=== PATIENT | female | born 1960 | race Caucasian/White ===

== ENCOUNTER → 2016-06-15 | Outpatient (CLI) | payer BC ==
--- NOTE | 2016-06-18 08:48 | MM ---
Reason for exam: screening (asymptomatic). Last mammogram was performed 2 years ago. History: Took hormonal contraceptives for 4 years. Physical Findings: A clinical breast exam by your physician is recommended on an annual basis and results should be correlated with mammographic findings. MG Screening Mammo w CAD Bilateral CC and MLO view(s) were taken. Prior study comparison: May 31, 2014, bilateral MG screening mammo w CAD. May 08, 2013, bilateral digital screening mammo w/CAD. September 19, 2011, bilateral digital screening mammo w/CAD. The breast tissue is heterogeneously dense. This may lower the sensitivity of mammography. There is no discrete abnormality. ASSESSMENT: Negative, BI-RAD 1 RECOMMENDATION: Routine screening mammogram of both breasts in 1 year.
== END | disposition home or self-care (01) ==
LOC: RADMAMWWP 07:58
PROVIDERS: ATTEND Obstetrics & Gynecology
DX: Z12.31 Encounter for screening mammogram for malignant neoplasm of breast (principal)

== ENCOUNTER → 2017-08-19 | Outpatient (CLI) | payer BC ==
--- NOTE | 2017-08-19 16:26 | BD ---
EXAMINATION TYPE: Axial Bone Density DATE OF EXAM: 08/19/2017 COMPARISON: NONE CLINICAL HISTORY: 57-year-old female screening for osteoporosis Height: 5 FT 7 IN Weight: 216 FRAX RISK QUESTIONS: Secondary Osteoporosis: RISK FACTORS HISTORY OF: Active: YES Postmenopausal woman: AGE 53 Lost more than 2 inches in height since high school: YES MEDICATIONS: Thyroid Medications: YES Which medication: SYNTHROID How Lon-2 YEARS Osteoporosis Medications: Which medication: METOPROLOL,SYNTHROID Additional History: EXAM MEASUREMENTS: Bone mineral densitometry was performed using the [employer] System. Bone mineral density as measured about the Lumbar spine is: ----- L1-L4(G/cm2): 0.885 T Score Values are as follows: ----- L2: -2.9 ----- L3: -2.3 ----- L4: -2.8 ----- L1-L4: -2.5 BASELINE Bone mineral density about the R hip (g/cm2): 0.800 Bone mineral density about the L hip (g/cm2): 0.822 T Score values are as follows: -----R Neck: -1.7 -----L Neck: -1.6 -----R Total: -1.2 -----L Total: -0.9 BASELINE IMPRESSION: Osteoporosis (T Score less than -2.5). There is increased fracture risk and therapy is usually indicated based on age. Re-Screen 1-2 years. NOTE: T-SCORE=SD OF THE YOUNG ADULT MEAN.
--- NOTE | 2017-08-20 08:43 | MM ---
Reason for exam: screening (asymptomatic). Last mammogram was performed 1 year and 2 months ago. History: Patient is postmenopausal. Took hormonal contraceptives for 4 years. Physical Findings: A clinical breast exam by your physician is recommended on an annual basis and results should be correlated with mammographic findings. MG Screening Mammo w CAD Bilateral CC and MLO view(s) were taken. Prior study comparison: June 15, 2016, bilateral MG screening mammo w CAD. May 31, 2014, bilateral MG screening mammo w CAD. The breast tissue is heterogeneously dense. This may lower the sensitivity of mammography. Finding: There is a 7 mm equal density (isodense), oval mass in the outer quadrant of the left breast not seen on MLO. ASSESSMENT: Incomplete: need additional imaging evaluation, BI-RAD 0 RECOMMENDATION: Special view mammogram of the left breast. If lesion persists on supplemental views, image directed ultrasound is recommended. [facility] will attempt to contact patient to return for supplemental views and ultrasound if indicated.
== END | disposition home or self-care (01) ==
LOC: RADMAMWWP 08:08
PROVIDERS: ATTEND Obstetrics & Gynecology
DX: Z12.31 Encounter for screening mammogram for malignant neoplasm of breast (principal); Z13.820 Encounter for screening for osteoporosis
CPT/HCPCS: 77067; 77080

== ENCOUNTER → 2017-09-02 | Outpatient (CLI) | payer BC ==
--- NOTE | 2017-09-02 10:42 | MM ---
Reason for exam: additional evaluation requested from abnormal screening. Last mammogram was performed less than 1 month ago. History: Patient is postmenopausal. Took hormonal contraceptives for 4 years. Physical Findings: Nurse did not find any significant physical abnormalities on exam. MG Work Up Mamm w CAD LT XCCL, MLO, and ML view(s) were taken of the left breast. Prior study comparison: August 19, 2017, bilateral MG screening mammo w CAD. June 15, 2016, bilateral MG screening mammo w CAD. The breast tissue is heterogeneously dense. This may lower the sensitivity of mammography. Axillary tail nodule not previously included on the CC views but was present on multiple prior MLO views compatible with a lymph node. These results were verbally communicated with the patient and result sheet given to the patient on 09/02/17. ASSESSMENT: Benign, BI-RAD 2 RECOMMENDATION: Return to routine screening mammogram schedule for both breasts.
== END ==
LOC: RADMAMWWP 07:45
PROVIDERS: ATTEND Obstetrics & Gynecology
DX: R92.8 Other abnormal and inconclusive findings on diagnostic imaging of breast (principal)
CPT/HCPCS: 77065

== ENCOUNTER → 2019-12-10 | Outpatient (CLI) | payer BC ==
--- NOTE | 2019-12-14 14:02 | MM ---
Reason for exam: screening (asymptomatic). Last mammogram was performed 2 years and 3 months ago. History: Patient is postmenopausal. Took hormonal contraceptives for 4 years. Physical Findings: A clinical breast exam by your physician is recommended on an annual basis and results should be correlated with mammographic findings. MG 3D Screening Mammo W/Cad Bilateral CC and MLO view(s) were taken. Prior study comparison: September 02, 2017, left breast MG work up mamm w CAD LT. August 19, 2017, bilateral MG screening mammo w CAD. The breast tissue is heterogeneously dense. This may lower the sensitivity of mammography. No significant changes when compared with prior studies. ASSESSMENT: Benign, BI-RAD 2 RECOMMENDATION: Routine screening mammogram of both breasts in 1 year.
== END | disposition home or self-care (01) ==
LOC: RADMAMWWP 07:30
PROVIDERS: ATTEND Obstetrics & Gynecology
DX: Z12.31 Encounter for screening mammogram for malignant neoplasm of breast (principal)
CPT/HCPCS: 77063; 77067

== ENCOUNTER 2020-08-29 17:57 | Emergency (ER) | payer BC ==
[2020-08-29 18:02] VITALS: BP 148/84; PULSE 101; RESP 20; TEMP 98.2
[2020-08-29] MEDS ORDERED: ACETAMINOPHEN TAB 500 MG TAB PO STA (18:13)
--- NOTE | 2020-08-29 19:07 | XR ---
EXAMINATION TYPE: XR foot complete LT DATE OF EXAM: 08/29/2020 COMPARISON: NONE HISTORY: Pain and swelling TECHNIQUE: 3 views FINDINGS: Metatarsals appear intact. The midfoot appears intact. I see no fracture nor dislocation. IMPRESSION: No fracture seen.
--- NOTE | 2020-08-29 19:08 | XR ---
EXAMINATION TYPE: XR ankle complete LT DATE OF EXAM: 08/29/2020 COMPARISON: NONE HISTORY: Pain TECHNIQUE: 3 views FINDINGS: Ankle mortise is anatomic. I see no fracture nor dislocation. Joint spaces are fairly brent l. There are small Achilles calcaneal spur. IMPRESSION: Minimal calcaneal spurring. No fracture.
--- NOTE | 2020-08-29 19:31 | ED ---
Lower Extremity Injury HPI - General Chief Complaint: Extremity Injury, Lower Stated Complaint: Fall/ankle injury Time Seen by Provider: 08/29/20 18:12 Source: patient Mode of arrival: wheelchair Limitations: no limitations - History of Present Illness Initial Comments: Patient is a 60-year-old female with past medical history remarkable for thyroid disorder, hypertension, anxiety presents to the emergency department complaining of left ankle and foot pain. Patient states that she rolled her ankle while wearing shoe earlier today. She states she slowly fell to the ground and did not injure any other part of her body. She denies hitting her head or experiencing loss of consciousness. She is only complaining of left lateral ankle pain as well as left foot pain. She states she has been able to ambulate on it, however this progressively worsened throughout the day today. The injury occurred at approximately noon today. She is instructed take Motrin with mild improvement in her pain. She presents emergency department for concern for possible fracture or injury. She has no other acute complaints or injuries at this time. - Related Data Home Medications Medication Instructions Recorded Confirmed Levothyroxine Sodium [Synthroid] 25 mcg PO DAILY 09/06/15 09/06/15 Metoprolol Tartrate [Lopressor] 25 mg PO DAILY 09/06/15 09/06/15 Multivitamins, Thera [Multivitamin] 1 tab PO DAILY 09/06/15 09/06/15 Allergies Allergy/AdvReac Type Severity Reaction Status Date / Time No Known Allergies Allergy Verified 08/29/20 18:02 Review of Systems ROS Statement: Those systems with pertinent positive or pertinent negative responses have been documented in the HPI. Review of Systems: CONST: Denies fever EYES: Denies blurry vision ENT: Denies nasal congestion C/V: Denies Chest pain RESP: Denies shortness of breath GI: Denies abdominal pain : Denies dysuria SKIN: Denies rash. MSK: Endorses left ankle pain NEURO: Denies headache ROS Other: All systems not noted in ROS Statement are negative. Past Medical History Past Medical History: Hypertension, Thyroid Disorder Additional Past Medical History / Comment(s): Anxiety History of Any Multi-Drug Resistant Organisms: None Reported Past Surgical History: Back Surgery Additional Past Surgical History / Comment(s): Laminectomy Past Psychological History: Anxiety Smoking Status: Never smoker Past Alcohol Use History: Occasional Past Drug Use History: None Reported General Exam - General Exam Comments Initial Comments: General: Mild distress secondary to ankle pain. HEAD: Normal with no signs of head trauma. EYES: EOMI ENT: Hearing grossly intact RESPIRATORY: Clear breath sounds bilaterally. C/V: Regular rate and rhythm, S1 and S2 auscultated. Peripheral pulses are 2+ intact throughout. ABD: Abd is soft, nontender, nondistended EXT: Patient has reduced range of motion of the left ankle secondary to pain over the lateral malleolus. Patient also has left lateral proximal foot tenderness over the metatarsals. SKIN: No rashes or lesions observed on exposed skin. NEURO: Alert and oriented 4. Patient is neurovascularly intact throughout. Limitations: no limitations Course Vital Signs 08/29/20 17:59 Temperature 98.2 F Pulse Rate 101 H Respiratory 20 Rate Blood Pressure 148/84 O2 Sat by Pulse 100 Oximetry Medical Decision Making - Medical Decision Making Based on the patient's presentation and physical exam, I'm concerned for possible acute bony treatment continue the patient's left foot or ankle, however cannot rule out a sprain or muscular injury at this time. Therefore we will obtain plain film x-rays of the patient's left ankle and left foot. I did offer the patient analgesia and she accepted Tylenol by mouth. I do not believe that she'll present to further laboratory studies or imaging at this time. Patient's imaging was negative for acute fracture or subluxation. I did discuss this with the patient informed her that she is likely experiencing an ankle sprain. I recommended ice, elevation, and relaxation. Advised that she weight- bear as tolerated. We will wrap the ankle and the Damian bandage applied with cru tches for home. She was in agreement with this plan. I offered her analgesia prescriptions which she declined. I instructed the patient to follow up with their PCP in the next 3 days. I explained that the patient should return to the emergency department if they experience any worsening symptoms. Strict return precautions were discussed with the patient. The patient expressed understanding of these instructions. I answered all questions that the patient had. The patient was discharged home in stable condition with their prescriptions and follow up information. Disposition Clinical Impression: Ankle sprain Disposition: HOME SELF-CARE Condition: Good Instructions (If sedation given, give patient instructions): Ankle Sprain (ED) Is patient prescribed a controlled substance at d/c from ED?: No Referrals: Jonathan Card MD [Primary Care Provider] - 1-2 days
== END 2020-08-29 20:20 | disposition home or self-care (01) ==
LOC: EC 17:57
DX: S93.402A Sprain of unspecified ligament of left ankle, initial encounter (principal); I10 Essential (primary) hypertension; E07.9 Disorder of thyroid, unspecified; Z79.890 Hormone replacement therapy; Z79.899 Other long term (current) drug therapy; W18.30XA Fall on same level, unspecified, initial encounter; Y92.89 Other specified places as the place of occurrence of the external cause; Y93.89 Activity, other specified
CPT/HCPCS: 99283

== ENCOUNTER 2022-08-20 08:47 | Observation (INO) | payer BC ==
[2022-08-20] MEDS ORDERED: ONDANSETRON 4 MG/2 ML VIAL IVP STA (09:12)
[2022-08-20] MEDS ORDERED: KETOROLAC 15 MG/ML 1 ML VIAL IVP STA (09:12)
[2022-08-20 09:32] LABS: Basophils % (A) 1 %; Eosinophils # (A) 0.1 k/uL (0-0.7); Eosinophils % (A) 2 %; HCT 45.7 % (34.0-46.0); HGB 14.8 gm/dL (11.4-16.0); Lymphocytes # (A) 2.2 k/uL (1.0-4.8); Lymphocytes % (A) 38 %; MCH 29.7 pg (25.0-35.0); MCHC 32.3 g/dL (31.0-37.0); MCV 92.2 fL (80.0-100.0); Mean Platelet Volume 8.8; Monocytes # (A) 0.3 k/uL (0-1.0); Monocytes % (A) 6 %; Neutrophils # (A) 2.9 k/uL (1.3-7.7); Neutrophils % (A) 52 %; Platelet Count 268 k/uL (150-450); RBC 4.96 m/uL (3.80-5.40); RDW 12.7 % (11.5-15.5); WBC 5.6 k/uL (3.8-10.6)
[2022-08-20 09:45] LABS: ALT 28 U/L (4-34); AST 35 U/L (14-36); African American GFR (CKD) >90 (>60 ml/min/1.73 sqM); Albumin 4.5 g/dL (3.5-5.0); Alkaline Phosphatase 76 U/L (38-126); Amylase 65 U/L (30-110); Anion Gap 10 mmol/L; Blood Urea Nitrogen 11 mg/dL (7-17); Calcium 9.8 mg/dL (8.4-10.2); Carbon Dioxide 24 mmol/L (22-30); Chloride 104 mmol/L (98-107); Glucose 124 mg/dL (74-99); INR 0.9 (<1.2); Lipase 113 U/L (23-300); Magnesium 1.9 mg/dL (1.6-2.3); Non-African American GFR(CKD) >90 (>60 ml/min/1.73 sqM); Partial Thromboplastin Time 23.5 sec (22.0-30.0); Prothrombin Time 9.8 sec (9.0-12.0); Sodium 138 mmol/L (137-145); Total Bilirubin 0.8 mg/dL (0.2-1.3); Total Protein 8.1 g/dL (6.3-8.2)
[2022-08-20 09:50] LABS: Potassium 4.4 mmol/L (3.5-5.1)
--- NOTE | 2022-08-20 10:11 | XR ---
EXAMINATION TYPE: XR thoracic spine complete DATE OF EXAM: 08/20/2022 COMPARISON: None HISTORY: Upper back pain TECHNIQUE: 3 view thoracic spine FINDINGS: There is a scoliosis with convexity to the right centered at approximately T9. There are 12 thoracic type vertebral bodies. The pedicles are intact. Disc heights are preserved. Vertebral body heights are preserved. IMPRESSION: 1. Thoracic scoliosis. 2. No acute osseous abnormality
--- NOTE | 2022-08-20 10:11 | XR ---
EXAMINATION TYPE: XR chest 2V DATE OF EXAM: 08/20/2022 COMPARISON: 09/06/2015 INDICATION: Back pain TECHNIQUE: Frontal and lateral views of the chest are obtained. FINDINGS: The heart size is normal. The pulmonary vasculature is normal. The lungs are clear. IMPRESSION: 1. No acute pulmonary process.
--- NOTE | 2022-08-20 10:16 | ED ---
Back Pain HPI - General Source: patient, RN notes reviewed Mode of arrival: ambulatory Limitations: no limitations - History of Present Illness MD Complaint: back pain <Kristy Benjamin - Last Filed: 08/20/22 17:06> <Dilia Colón - Last Filed: 08/22/22 08:58> - General Chief Complaint: Back Pain/Injury Stated Complaint: upper back pain Time Seen by Provider: 08/20/22 08:57 - History of Present Illness Initial Comments: This is a 62-year-old female who presents to the emergency department for pain between her shoulder blades. States that she had pain there yesterday while shopping that then resolved. It returned at about 12:30 this morning, and again resolved on its own. However at 8 AM, the pain again woke her up from her sleep and is worse than it had been. Pain has since persisted. Reports associated nausea. Denies any injuries or history of similar symptoms in the past. She has no shortness of breath and the pain does not go into the chest. Denies any fevers, chills, sore throat, cough, dyspnea, chest pain, palpitations, abdominal pain, vomiting, diarrhea, or headaches. (Kristy Benjamin) - Related Data Home Medications Medication Instructions Recorded Confirmed Metoprolol Tartrate [Lopressor] 25 mg PO DAILY 09/06/15 08/20/22 Biotin 5 mg PO DAILY 08/20/22 08/20/22 Levothyroxine Sodium [Synthroid] 88 mcg PO DAILY 08/20/22 08/20/22 Multivit with Calcium,Iron,Min 1 tab PO DAILY 08/20/22 08/20/22 [Women's Multivitamin] Allergies Allergy/AdvReac Type Severity Reaction Status Date / Time No Known Allergies Allergy Verified 08/20/22 13:02 Review of Systems ROS Other: All systems not noted in ROS Statement are negative. <Kristy Benjamin - Last Filed: 08/20/22 17:06> ROS Other: All systems not noted in ROS Statement are negative. <Dilia Colón - Last Filed: 08/22/22 08:58> ROS Statement: Those systems with pertinent positive or pertinent negative responses have been documented in the HPI. Past Medical History Past Medical History: Hypertension, Thyroid Disorder Additional Past Medical History / Comment(s): Anxiety History of Any Multi-Drug Resistant Organisms: None Reported Past Surgical History: Back Surgery Additional Past Surgical History / Comment(s): Laminectomy Past Psychological History: Anxiety Smoking Status: Never smoker Past Alcohol Use History: Occasional Past Drug Use History: None Reported <Kristy Benjamin - Last Filed: 08/20/22 17:06> General Exam Limitations: no limitations General appearance: alert, in no apparent distress Head exam: Present: atraumatic, normocephalic, normal inspection Respiratory exam: Present: normal lung sounds bilaterally. Absent: respiratory distress, wheezes, rales, rhonchi, stridor Cardiovascular Exam: Present: regular rate, normal rhythm, normal heart sounds. Absent: systolic murmur, diastolic murmur, rubs, gallop, clicks Back exam: Present: normal inspection, full ROM. Absent: tenderness Neurological exam: Present: alert, oriented X3, CN II-XII intact Psychiatric exam: Present: normal affect, normal mood Skin exam: Present: warm, dry, intact, normal color. Absent: rash <Kristy Benjamin - Last Filed: 08/20/22 17:06> Course Vital Signs 08/20/22 08/20/22 08/20/22 08:48 10:04 11:00 Temperature 98.5 F Pulse Rate 121 H 80 79 Respiratory 18 18 17 Rate Blood Pressure 172/88 175/92 146/82 O2 Sat by Pulse 100 98 99 Oximetry 08/20/22 08/20/22 08/20/22 13:00 13:52 15:00 Temperature 98.7 F Pulse Rate 78 76 Respiratory 24 20 Rate Blood Pressure 141/94 154/87 145/84 O2 Sat by Pulse 97 99 97 Oximetry 08/20/22 17:19 Temperature 98.6 F Pulse Rate 77 Respiratory 18 Rate Blood Pressure 135/81 O2 Sat by Pulse 96 Oximetry Medical Decision Making - Lab Data Result diagrams: 08/20/22 09:23 08/20/22 09:23 - Radiology Data Radiology results: report reviewed, image reviewed <Kristy Benjamin - Last Filed: 08/20/22 17:06> - Lab Data Result diagrams: 08/20/22 09:23 08/20/22 09:23 <Dilia Colón - Last Filed: 08/22/22 08:58> - Medical Decision Making This is a 62-year-old female who presents to the emergency department for back pain. Was pt. sent in by a medical professional or institution? @ -No Did you speak to anyone other than the patient for history? @ -No Did you review nursing and triage notes? @ -Yes, and I agree, it is accurate with regards to the patient's symptoms. Were old charts reviewed? @ -No Differential Diagnosis? @ -Differential Back Pain: Strain, zoster, cauda equina syndrome, epidural abscess, vertebral osteomyelitis, discitis, fracture, subluxation, disc herniation, DJD, spinal stenosis, dissection, AAA, pancreatitis, peptic ulcer disease, pyelonephritis, kidney stone, this is not meant to be an all-inclusive list. EKG interpreted by me (3pts min.)? @ -EKG interpreted by me demonstrating the following: Sinus tachycardia. Ventricular rate 110 beats per minute, NJ interval 165 ms, QRS duration 89 ms, QTC 395 ms. X-rays interpreted by me (1pt min.)? @ -Chest x-ray obtained, my interpretation identifies no localized consolidations or infiltrates. CT interpreted by me (1pt min.)? @ -CT angiogram of the chest obtained. My interpretation identifies no evidence of an aortic aneurysm or dissection. U/S interpreted by me (1pt. min.)? @ -Not obtained What testing was considered but not performed? (CT, X-rays, U/S, labs)? Why? @ -None What meds were considered but not given? Why? @ -None Did you discuss the management of the patient with other professionals? @ -Yes, Dr. Moses, who accepts the patient for admission. Did you reconcile home meds? @ -No Was smoking cessation discussed for >3mins.? @ -No Was critical care preformed (if so, how long)? @ -No Were there social determinants of health that impacted care today? How? (Homelessness, low income, unemployed, alcoholism, drug addiction, transportation, low edu. Level, literacy, decrease access to med. care, longterm, rehab)? @ -No Was there de-escalation of care discussed even if they declined? (Discuss DNR or withdrawal of care, Hospice)? @ -No What co-morbidities impacted this encounter? (DM, HTN, Smoking, COPD, CAD, Cancer, CVA, Hep., AIDS, mental health diagnosis, sleep apnea, morbid obesity)? @ -HTN Was patient admitted / discharged? @ -Admitted. Lab work obtained and found to be nonactionable. Chest x-ray rev ealed no acute process. CTA was obtained, ruling out aortic dissection. Patient was tachycardic on arrival with questionable ST depression on EKG. Given the abrupt onset of her pain with associated nausea, tachycardia, and questionable ST changes, patient admitted to medicine to trend troponins and have cardiology consult for possible anginal event. Undiagnosed new problem with uncertain prognosis? @ -None Drug Therapy requiring intensive monitoring for toxicity (Heparin, Nitro, Insulin, Cardizem)? @ -None Were any procedures done? @ -None Diagnosis/symptom? @ -Back pain, tachycardia Acute, or Chronic, or Acute on Chronic? @ -Acute Uncomplicated (without systemic symptoms) or Complicated (systemic symptoms)? @ -Complicated Side effects of treatment? @ -None Exacerbation, Progression, or Severe Exacerbation] @ -Not applicable Poses a threat to life or bodily function? @ -Yes This case was discussed in detail with the attending ED physician, Dr. Colón. Presentation, findings, and treatment plan discussed in detail as well. (Kristy Benjamin) - Lab Data Lab Results 08/20/22 08/20/22 08/20/22 Range/Units 09:23 09:23 09:23 WBC 5.6 (3.8-10.6) k/uL RBC 4.96 (3.80-5.40) m/uL Hgb 14.8 (11.4-16.0) gm/dL Hct 45.7 (34.0-46.0) % MCV 92.2 (80.0-100.0) fL MCH 29.7 (25.0-35.0) pg MCHC 32.3 (31.0-37.0) g/dL RDW 12.7 (11.5-15.5) % Plt Count 268 (150-450) k/uL MPV 8.8 Neutrophils % 52 % Lymphocytes % 38 % Monocytes % 6 % Eosinophils % 2 % Basophils % 1 % Neutrophils # 2.9 (1.3-7.7) k/uL Lymphocytes # 2.2 (1.0-4.8) k/uL Monocytes # 0.3 (0-1.0) k/uL Eosinophils # 0.1 (0-0.7) k/uL Basophils # 0.0 (0-0.2) k/uL PT 9.8 (9.0-12.0) sec INR 0.9 (<1.2) APTT 23.5 (22.0-30.0) sec D-Dimer 0.26 (<0.60) mg/L FEU Sodium 138 (137-145) mmol/L Potassium 4.4 (3.5-5.1) mmol/L Chloride 104 (98-107) mmol/L Carbon Dioxide 24 (22-30) mmol/L Anion Gap 10 mmol/L BUN 11 (7-17) mg/dL Creatinine 0.68 (0.52-1.04) mg/dL Est GFR (CKD-EPI)AfAm >90 (>60 ml/min/1.73 sqM) Est GFR (CKD-EPI)NonAf >90 (>60 ml/min/1.73 sqM) Glucose 124 H (74-99) mg/dL Calcium 9.8 (8.4-10.2) mg/dL Magnesium 1.9 (1.6-2.3) mg/dL Total Bilirubin 0.8 (0.2-1.3) mg/dL AST 35 (14-36) U/L ALT 28 (4-34) U/L Alkaline Phosphatase 76 (38-126) U/L Troponin I (0.000-0.034) ng/mL Total Protein 8.1 (6.3-8.2) g/dL Albumin 4.5 (3.5-5.0) g/dL Amylase 65 (30-110) U/L Lipase 113 (23-300) U/L 08/20/22 08/20/22 Range/Units 09:23 12:45 WBC (3.8-10.6) k/uL RBC (3.80-5.40) m/uL Hgb (11.4-16.0) gm/dL Hct (34.0-46.0) % MCV (80.0-100.0) fL MCH (25.0-35.0) pg MCHC (31.0-37.0) g/dL RDW (11.5-15.5) % Plt Count (150-450) k/uL MPV Neutrophils % % Lymphocytes % % Monocytes % % Eosinophils % % Basophils % % Neutrophils # (1.3-7.7) k/uL Lymphocytes # (1.0-4.8) k/uL Monocytes # (0-1.0) k/uL Eosinophils # (0-0.7) k/uL Basophils # (0-0.2) k/uL PT (9.0-12.0) sec INR (<1.2) APTT (22.0-30.0) sec D-Dimer (<0.60) mg/L FEU Sodium (137-145) mmol/L Potassium (3.5-5.1) mmol/L Chloride (98-107) mmol/L Carbon Dioxide (22-30) mmol/L Anion Gap mmol/L BUN (7-17) mg/dL Creatinine (0.52-1.04) mg/dL Est GFR (CKD-EPI)AfAm (>60 ml/min/1.73 sqM) Est GFR (CKD-EPI)NonAf (>60 ml/min/1.73 sqM) Glucose (74-99) mg/dL Calcium (8.4-10.2) mg/dL Magnesium (1.6-2.3) mg/dL Total Bilirubin (0.2-1.3) mg/dL AST (14-36) U/L ALT (4-34) U/L Alkaline Phosphatase (38-126) U/L Troponin I <0.012 <0.012 (0.000-0.034) ng/mL Total Protein (6.3-8.2) g/dL Albumin (3.5-5.0) g/dL Amylase (30-110) U/L Lipase (23-300) U/L Disposition <Kristy Benjamin - Last Filed: 08/20/22 17:06> <Dilia Colón - Last Filed: 08/22/22 08:58> Clinical Impression: Upper back pain, Tachycardia, Nausea Disposition: ADMITTED IP TO THIS HOSP
--- NOTE | 2022-08-20 12:24 | CT ---
EXAMINATION TYPE: CT angio thor/abd pel aorta DATE OF EXAM: 08/20/2022 COMPARISON: HISTORY: pain between shoulder blades CT DLP: 2117.8 mGycm CONTRAST: CTA thoracic and abdominal aorta with 3-D reconstruction is performed and without and with IV Contras t, patient injected with 100 mL of Isovue 370. Contrast CTA of the thoracic and abdominal aorta was performed from the lung apex through the base of the pelvis. 3-D reconstruction imaging obtained at a separate workstation. CT Chest: THORACIC AORTA: There is no evidence for aneurysm. No dissection or mediastinal hematoma. Mild ath eromatous changes are seen. LUNGS: The lungs are clear and free of infiltrate or atelectasis. No pulmonary nodule or mass is det ected. No pleural effusion or CT evidence of interstitial lung disease. MEDIASTINUM: The heart is not enlarged. No evidence for mediastinal mass or adenopathy. HILAR STRUCTURES: No evidence for mass. No hilar adenopathy is appreciated. OTHER: No significant abnormality. CONTRAST CT ABDOMEN AND PELVIS ABDOMINAL AORTA: No evidence for abdominal aortic aneurysm.No dissection. Iliac vessels are symmetri c and patent. LIVER/GB-incidental hepatic hemangioma. PANCREAS- No significant abnormality is seen. SPLEEN- No significant abnormality is seen. ADRENALS- No significant abnormality is seen. KIDNEYS/BLADDER- No significant abnormality is seen. BOWEL- No Significant abnormality GENITAL ORGANS: No gross abnormality seen. LYMPH NODES- No greater than 1cm abdominal or pelvic lymph nodes areappreciated. OSSEOUS STRUCTURES- No significant abnormality is seen. OTHER- No significant abnormality is seen. IMPRESSION- No evidence for thoracic or abdominal aortic aneurysm or dissection.
[2022-08-20] MEDS ORDERED: KETOROLAC 15 MG/ML 1 ML VIAL IVP PRN (12:52)
[2022-08-20] MEDS ORDERED: ONDANSETRON 4 MG/2 ML VIAL IVP PRN (12:52)
[2022-08-20] MEDS ORDERED: ACETAMINOPHEN TAB 325 MG TAB PO PRN (12:52)
[2022-08-20] MEDS ORDERED: MORPHINE SULFATE 4 MG/ML SYRINGE IV PRN (12:52)
[2022-08-20] MEDS ORDERED: NALOXONE 0.4 MG/ML 1 ML VIAL IV PRN (12:52)
[2022-08-20] MEDS: ENOXAPARIN 40 MG/0.4 ML SYRINGE SQ SCH (18:00)
[2022-08-20] MEDS: METOPROLOL TARTRATE 25 MG TAB PO SCH (20:13)
[2022-08-20] MEDS: IBUPROFEN 400 MG TAB PO PRN (20:17)
[2022-08-20] MEDS ORDERED: ALPRAZolam 0.25 MG TAB PO PRN (22:00)
[2022-08-20] MEDS ORDERED: MELATONIN 3 MG TABLET PO PRN (22:00)
[2022-08-20] MEDS ORDERED: LACTULOSE 20 GM/30 ML CUP PO PRN (22:00)
--- NOTE | 2022-08-20 22:10 | P.HPIM ---
History of Present Illness H&P Date: 08/20/22 Chief Complaint: Pain between shoulder blade This is a very pleasant 62-year-old patient follows with Dr. Jonathan Card. Chronic stable medical conditions include hypertension, hypothyroid, anxiety. Patient's had previous back surgery and laminectomy. Yesterday she felt a bit bothered between the shoulder blades. And went about her business as usual. It improved. Went to bed. Around midnight the pain came back again. A copy by significant nausea. He didn't feel right. Then she went to sleep from about 3 PM to about 8 AM. No dizziness no lightheadedness. Again this morning she felt more nauseated. No anterior chest pain. No radiation. [place] a bit tired. Decided to come in. Patient had a cardiac catheterization around 2015, by Dr. ISAIAS Aquino. Reportedly negative. No prior cardiac history. Review of systems: GEN.: Tired EYES: None HEENT: None NECK: None RESPIRATORY: None CARDIOVASCULAR: As above GASTROINTESTINAL: Nausea GENITOURINARY: None MUSCULOSKELETAL: None LYMPHATICS: None HEMATOLOGICAL: None PSYCHIATRY: None NEUROLOGICAL: None Past medical history to include: Hypertension, hypothyroid, anxiety Social history: . Works at the [employer]. Alcohol occasionally. No smoking Physical examination: VITAL SIGNS: 98.2, 76, 16, 129/64, 99% room air GENERAL: BMI 32.2, laying in bed awake comfortable. EYES: Pupils equal. Conjunctiva normal. HEENT: External appearance of nose and ears normal, oral cavity grossly normal. NECK: JVD not raised; masses not palpable. HEART: First and second heart sounds are normal; no edema. LUNGS: Respiratory rate normal; clear to auscultation. ABDOMEN: Soft, nontender, liver spleen not palpable, no masses palpable. PSYCH: Alert and oriented x3; mood and affect normal. MUSCULOSKELETAL:No Clubbing/cyanosis;muscles-grossly intact NEUROLOGICAL: Cranial nerves grossly intact; no facial asymmetry, power and sensation grossly intact. LYMPHATICS: No lymph nodes palpable in the axilla and neck INVESTIGATIONS, reviewed in the clinical context: White count 5.6 hemoglobin 14.8 platelets 268 sodium 138 potassium 4.4 creatinine 0.68 Troponin I 3 less than 0.012 EKG tracing personally reviewed by me-heart rate 110. Some ST depression in lead [address] angiogram thoracic/outdoor: Negative for aneurysm/dissection Chest x-ray film personally reviewed by me-unremarkable Assessment and plan -Acute chest pain between the shoulder blades. A copy by EKG changes in inf erolateral leads. Negative troponins. Patiently distress test. Telemetry. Cardiology consulted. -Essential hypertension Lopressor 25 mg twice a day -Hypothyroid Synthroid 88 g a day -Obesity BMI 32.2 Weight loss measures Discussed with patient. Cardiology consulted. Will require stress test Past Medical History Past Medical History: Hypertension, Thyroid Disorder Additional Past Medical History / Comment(s): Anxiety History of Any Multi-Drug Resistant Organisms: None Reported Past Surgical History: Back Surgery Additional Past Surgical History / Comment(s): Laminectomy Past Psychological History: Anxiety Smoking Status: Never smoker Past Alcohol Use History: Occasional Past Drug Use History: None Reported Medications and Allergies Home Medications Medication Instructions Recorded Confirmed Type Metoprolol Tartrate [Lopressor] 25 mg PO DAILY 09/06/15 08/20/22 History Biotin 5 mg PO DAILY 08/20/22 08/20/22 History Levothyroxine Sodium [Synthroid] 88 mcg PO DAILY 08/20/22 08/20/22 History Multivit with Calcium,Iron,Min 1 tab PO DAILY 08/20/22 08/20/22 History [Women's Multivitamin] Allergies Allergy/AdvReac Type Severity Reaction Status Date / Time No Known Allergies Allergy Verified 08/20/22 13:02 Physical Exam Vitals: Vital Signs Temp Pulse Resp BP Pulse Ox 08/20/22 17:19 98.6 F 77 18 135/81 96 08/20/22 15:00 145/84 97 08/20/22 13:52 98.7 F 76 20 154/87 99 08/20/22 13:00 78 24 141/94 97 08/20/22 11:00 79 17 146/82 99 08/20/22 10:04 80 18 175/92 98 08/20/22 08:48 98.5 F 121 H 18 172/88 100 Intake and Output 08/20/22 08/20/22 08/20/22 06:59 14:59 22:59 Other: Weight 98.883 kg Results CBC & Chem 7: 08/20/22 09:23 08/20/22 09:23 Labs: Abnormal Lab Results - Last 24 Hours (Table) 08/20/22 Range/Units 09:23 Glucose 124 H (74-99) mg/dL
[2022-08-21] MEDS ORDERED: CALCIUM CARBONATE 500 MG CHEWABLE PO PRN
[2022-08-21] MEDS ORDERED: PROMETHAZINE 25 MG TAB PO PRN
[2022-08-21] MEDS: LEVOTHYROXINE 88 MCG TAB PO SCH (05:38)
[2022-08-21] MEDS: IBUPROFEN 400 MG TAB PO PRN ×2 (06:56→20:04)
[2022-08-21] MEDS: METOPROLOL TARTRATE 25 MG TAB PO SCH ×2 (09:53→20:04)
[2022-08-21] MEDS: ENOXAPARIN 40 MG/0.4 ML SYRINGE SQ SCH (09:53)
[2022-08-21] MEDS: MULTIVITAMINS, THERA 1 EACH TAB PO SCH (09:53)
[2022-08-21] MEDS: ASPIRIN 81 MG PO SCH (09:53)
--- NOTE | 2022-08-21 10:46 | P.CRDCN ---
History of Present Illness History of present illness: HISTORY OF PRESENT ILLNESS: This is a 62-year-old female with a past medical history significant for hypertension and borderline hyperlipidemia. Patient used to follow in the office with Dr. Aquino but has not been seen in the office since 2012. We have been asked to see the patient in consultation for chest pain. Patient examined at the bedside. Patient states on Saturday she was out shopping when she developed pain in her upper back. She denied having any chest pain at that time. She thought it may be stress related as when she gets stressed she usually tends to have pain in her upper back. She states that the pain went away on its own and she had no other symptoms at night. She states that she woke up in the middle of the night with pain and then was able to fall back asleep. She states she woke up at 8:00 in the morning and continue to have pain in between her shoulder blades and was also nauseated. The patient denies having any chest pain. She states these symptoms are similar to when she had a stress test in 2012. She did undergo heart catheterization in July 2012 which did not reveal any significant obstructive disease. The patient states her mom has a history of a valve replacement and her dad was a smoker and she believes he from a heart attack. No family history of premature coronary artery disease. * EKG reveals sinus mechanism with minimal diffuse ST depression * Chest xray negative for acute process * Laboratory data: WBC 5.6. Hemoglobin 14.8. Platelet count 260. D-dimer 0.26. Sodium 130. Potassium 4.4. BUN 11. Creatinine 0.68. Troponin negative 3. * Current home cardiac medications include metoprolol tartrate 25 mg daily REVIEW OF SYSTEMS: At the time of my exam: CONSTITUTIONAL: Denies fever or chills. HEENT: Denies blurred vision, vision changes, or eye pain. Denies hemoptysis CARDIOVASCULAR: Denies chest pain. Denies orthopnea. Denies PND. Denies palpitations RESPIRATORY: Denies shortness of breath. GASTROINTESTINAL: Denies abdominal pain. Denies nausea or vomiting. HEMATOLOGIC: Denies bleeding disorders. GENITOURINARY: Denies any blood in urine. SKIN: Denies pruitis. Denies rash. PHYSICAL EXAM: VITAL SIGNS: Reviewed. GENERAL: Well-developed in no acute distress. HEENT: Head is normocephalic. Pupils are equal, round. Sclerae anicteric. Mucous membranes of the mouth are moist. Neck supple. No JVD or thyromegaly LUNGS: Respirations even and unlabored. Lungs essentially clear to auscultation bilaterally. HEART: Regular rate and rhythm. S1 and S2 heard. ABDOMEN: Soft. Nondistended. Nontender. EXTREMITIES: Normal range of motion. No clubbing or cyanosis. Peripheral pulses intact. No lower extremity edema NEUROLOGIC: Awake and alert. Oriented x 3. ASSESSMENT: Chest pain Hypertension Borderline hyperlipidemia, per patient PLAN: An acute coronary event has been out Resume home cardiac medications Hold metoprolol tartrate in a.m. Nothing by mouth at midnight Patient to undergo stress echocardiogram tomorrow Obtain 2-D echo to assess cardiac structure and function Further recommendations pending patient's course Nurse practitioner note has been reviewed by physician. Signing provider agrees with the documented findings, assessment, and plan of care. Past Medical History Past Medical History: Hypertension, Thyroid Disorder Additional Past Medical History / Comment(s): Anxiety History of Any Multi-Drug Resistant Organisms: None Reported Past Surgical History: Back Surgery Additional Past Surgical History / Comment(s): Laminectomy Past Psychological History: Anxiety Smoking Status: Never smoker Past Alcohol Use History: Occasional Past Drug Use History: None Reported Medications and Allergies Home Medications Medication Instructions Recorded Confirmed Type Metoprolol Tartrate [Lopressor] 25 mg PO DAILY 09/06/15 08/20/22 History Biotin 5 mg PO DAILY 08/20/22 08/20/22 History Levothyroxine Sodium [Synthroid] 88 mcg PO DAILY 08/20/22 08/20/22 History Multivit with Calcium,Iron,Min 1 tab PO DAILY 08/20/22 08/20/22 History [Women's Multivitamin] Allergies Allergy/AdvReac Type Severity Reaction Status Date / Time No Known Allergies Allergy Verified 08/20/22 13:02 Physical Exam Vitals: Vital Signs Temp Pulse Pulse Resp BP BP Pulse Ox 08/21/22 07:25 98.1 F 67 18 144/78 96 08/21/22 02:00 97.7 F 78 16 120/65 100 08/20/22 19:40 98.2 F 76 16 129/64 99 08/20/22 17:19 98.6 F 77 18 135/81 96 08/20/22 15:00 145/84 97 08/20/22 13:52 98.7 F 76 20 154/87 99 08/20/22 13:00 78 24 141/94 97 08/20/22 11:00 79 17 146/82 99 08/20/22 10:04 80 18 175/92 98 08/20/22 08:48 98.5 F 121 H 18 172/88 100 Intake and Output 08/20/22 08/21/22 08/21/22 22:59 06:59 14:59 Other: # Voids 2 3 Results 08/20/22 09:23 08/20/22 09:23 Cardiac Enzymes 08/20/22 08/20/22 08/20/22 Range/Units 09:23 09:23 12:45 AST 35 (14-36) U/L Troponin I <0.012 <0.012 (0.000-0.034) ng/mL 08/20/22 Range/Units 15:50 AST (14-36) U/L Troponin I <0.012 (0.000-0.034) ng/mL Coagulation 08/20/22 Range/Units 09:23 PT 9.8 (9.0-12.0) sec APTT 23.5 (22.0-30.0) sec CBC 08/20/22 Range/Units 09:23 WBC 5.6 (3.8-10.6) k/uL RBC 4.96 (3.80-5.40) m/uL Hgb 14.8 (11.4-16.0) gm/dL Hct 45.7 (34.0-46.0) % Plt Count 268 (150-450) k/uL Comprehensive Metabolic Panel 08/20/22 Range/Units 09:23 Sodium 138 (137-145) mmol/L Potassium 4.4 (3.5-5.1) mmol/L Chloride 104 (98-107) mmol/L Carbon Dioxide 24 (22-30) mmol/L BUN 11 (7-17) mg/dL Creatinine 0.68 (0.52-1.04) mg/dL Glucose 124 H (74-99) mg/dL Calcium 9.8 (8.4-10.2) mg/dL AST 35 (14-36) U/L ALT 28 (4-34) U/L Alkaline Phosphatase 76 (38-126) U/L Total Protein 8.1 (6.3-8.2) g/dL Albumin 4.5 (3.5-5.0) g/dL Current Medications Generic Name Dose Route Start Last Admin Trade Name Freq PRN Reason Stop Dose Admin Acetaminophen 650 mg 08/20/22 12:52 Acetaminophen Tab 325 Mg Tab PO Q6HR PRN Mild Pain or Fever > 100.5 Alprazolam 0.25 mg 08/20/22 22:00 Alprazolam 0.25 Mg Tab PO Q6HR PRN Anxiety Calcium Carbonate/Glycine 1,000 mg 08/21/22 00:00 Calcium Carbonate 500 Mg Chewable PO Q4HR PRN Dyspepsia Enoxaparin Sodium 40 mg 08/20/22 17:30 08/20/22 18:00 Enoxaparin 40 Mg/0.4 Ml Syringe SQ 40 mg DAILY OSVALDO Administration Ibuprofen 400 mg 08/20/22 12:52 08/21/22 06:56 Ibuprofen 400 Mg Tab PO 400 mg Q6HR PRN Administration Mild Pain or Fever > 100.5 Ketorolac Tromethamine 15 mg 08/20/22 12:52 Ketorolac 15 Mg/Ml 1 Ml Vial IVP 08/23/22 12:53 Q6HR PRN Moderate Pain (Scale 4 to 6) Lactulose 20 gm 08/20/22 22:00 Lactulose 20 Gm/30 Ml Cup PO DAILY PRN Constipation Levothyroxine Sodium 88 mcg 08/21/22 06:30 08/21/22 05:38 Levothyroxine 88 Mcg Tab PO 88 mcg DAILY@0630 OSVALDO Administration Melatonin 3 mg 08/20/22 22:00 Melatonin 3 Mg Tablet PO HS PRN Insomnia Metoprolol Tartrate 25 mg 08/20/22 21:00 08/20/22 20:13 Metoprolol Tartrate 25 Mg Tab PO 25 mg BID OSVALDO Administration Morphine Sulfate 4 mg 08/20/22 12:52 Morphine Sulfate 4 Mg/Ml Syringe IV Q4HR PRN Severe Pain (Scale 7 to 10) Multivitamins 1 each 08/21/22 09:00 Multivitamins, Thera 1 Each Tab PO DAILY OSVALDO Naloxone HCl 0.2 mg 08/20/22 12:52 Naloxone 0.4 Mg/Ml 1 Ml Vial IV Q2M PRN Opioid Reversal Ondansetron HCl 4 mg 08/20/22 12:52 Ondansetron 4 Mg/2 Ml Vial IVP Q8HR PRN Nausea And Vomiting Promethazine HCl 12.5 mg 08/21/22 00:00 Promethazine 25 Mg Tab PO Q6HR PRN Nausea And Vomiting Intake and Output 08/20/22 08/21/22 08/21/22 22:59 06:59 14:59 Other: # Voids 2 3 08/20/22 09:23 08/20/22 09:23
--- NOTE | 2022-08-21 14:46 | CA ---
Transthoracic Echo Report Name: Maxine Vizcarra Age: 62 Gender: F : 1960 Exam Date: 08/21/2022 13:22 Exam Location: [facility] Ht (in): 69 Wt (lb): 218 Ordering Physician: Mohit Jimenez MD ([id number]) Attending/Referring Phys: Barbara VARELA Starter Cup Powder Mixer Lovely Daniel [facility] Procedure CPT: Indications: Pain Cardiac Hx: Technical Quality: Fair Contrast 1: Total Dose (mL): Contrast 2: Total Dose (mL): MEASUREMENTS (Male / Female) Normal Values 2D ECHO LV Diastolic Diameter PLAX 4.7 cm 4.2 - 5.9 / 3.9 - 5.3 cm LV Systolic Diameter PLAX 3.5 cm IVS Diastolic Thickness 0.8 cm 0.6 - 1.0 / 0.6 - 0.9 cm LVPW Diastolic Thickness 1.0 cm 0.6 - 1.0 / 0.6 - 0.9 cm LV Relative Wall Thickness 0.4 Ascending Aorta Diameter 2.8 cm M-MODE Aortic Root Diameter MM 2.9 cm LA Systolic Diameter MM 4.0 cm LA Ao Ratio MM 1.4 AV Cusp Separation MM 2.2 cm DOPPLER AV Peak Velocity 141.0 cm/s AV Peak Gradient 8.0 mmHg AV Mean Velocity 106.7 cm/s AV Mean Gradient 5.0 mmHg AV Velocity Time Integral 31.0 cm LVOT Peak Velocity 109.6 cm/s LVOT Peak Gradient 4.8 mmHg LVOT Velocity Time Integral 23.4 cm Mitral E Point Velocity 82.6 cm/s Mitral A Point Velocity 82.1 cm/s Mitral E to A Ratio 1.0 MV Deceleration Time 245.3 ms LV E' Lateral Velocity 9.3 cm/s Mitral E to LV E' Lateral Ratio 8.9 LV E' Septal Velocity 8.7 cm/s Mitral E to LV E' Septal Ratio 9.5 TR Peak Velocity 207.4 cm/s TR Peak Gradient 17.2 mmHg Right Atrial Pressure 3.0 mmHg Pulmonary Artery Systolic Pressu 20.2 mmHg Right Ventricular Systolic Press 20.2 mmHg FINDINGS Left Ventricle Normal wall thickness, systolic function with no obvious regional wall motion abnormalities. Left ventricular cavity size at the upper limits of normal. Left ventricular ejection fraction is estimated at 50-55%. Right Ventricle The right ventricle is normal in size and function. Right Atrium The right atrium is normal in size. Left Atrium The left atrium is normal in size. Mitral Valve Structurally normal mitral valve without significant stenosis or prolapse. Trace mitral regurgitation. Aortic Valve Structurally normal aortic valve without significant sclerosis or stenosis. There is no aortic regurgitation. Tricuspid Valve Structurally normal tricuspid valve. Trace tricuspid regurgitation. Pulmonic Valve Structurally normal pulmonic valve without significant stenosis. There is no pulmonic regurgitation. Pericardium Normal pericardium without effusion. Aorta Normal aortic root dimension. CONCLUSIONS Normal LV function Previewed by: Dr. Mohit Jimenez MD (Electronically Signed) Final Date: 21 August 2022 14:46
--- NOTE | 2022-08-21 21:37 | P.PN ---
Progress Note - Text Progress Note Date: 08/21/22 Chief Complaint: Pain between shoulder blade This is a very pleasant 62-year-old patient follows with Dr. Jonathan Card. Chronic stable medical conditions include hypertension, hypothyroid, anxiety. Patient's had previous back surgery and laminectomy. Yesterday she felt a bit bothered between the shoulder blades. And went about her business as usual. It improved. Went to bed. Around midnight the pain came back again. A copy by significant nausea. He didn't feel right. Then she went to sleep from about 3 PM to about 8 AM. No dizziness no lightheadedness. Again this morning she felt more nauseated. No anterior chest pain. No radiation. [place] a bit tired. Decided to come in. Patient had a cardiac catheterization around 2015, by Dr. ISAIAS Aquino. Reportedly negative. No prior cardiac history. August 21: No further pain. Seen by cardiology. For stress test tomorrow. Discussed. Active Medications Acetaminophen (Acetaminophen Tab 325 Mg Tab) 650 mg PO Q6HR PRN PRN Reason: Mild Pain or Fever > 100.5 Alprazolam (Alprazolam 0.25 Mg Tab) 0.25 mg PO Q6HR PRN PRN Reason: Anxiety Aspirin (Aspirin 81 Mg) 81 mg PO DAILY [facility] Last Admin: 08/21/22 09:53 Dose: 81 mg Calcium Carbonate/Glycine (Calcium Carbonate 500 Mg Chewable) 1,000 mg PO Q4HR PRN PRN Reason: Dyspepsia Enoxaparin Sodium (Enoxaparin 40 Mg/0.4 Ml Syringe) 40 mg SQ DAILY [facility] Last Admin: 08/21/22 09:53 Dose: 40 mg Ibuprofen (Ibuprofen 400 Mg Tab) 400 mg PO Q6HR PRN PRN Reason: Mild Pain or Fever > 100.5 Last Admin: 08/21/22 20:04 Dose: 400 mg Ketorolac Tromethamine (Ketorolac 15 Mg/Ml 1 Ml Vial) 15 mg IVP Q6HR PRN PRN Reason: Moderate Pain (Scale 4 to 6) Stop: 08/23/22 12:53 Lactulose (Lactulose 20 Gm/30 Ml Cup) 20 gm PO DAILY PRN PRN Reason: Constipation Levothyroxine Sodium (Levothyroxine 88 Mcg Tab) 88 mcg PO DAILY@0630 [facility] Last Admin: 08/21/22 05:38 Dose: 88 mcg Melatonin (Melatonin 3 Mg Tablet) 3 mg PO HS PRN PRN Reason: Insomnia Metoprolol Tartrate (Metoprolol Tartrate 25 Mg Tab) 25 mg PO BID [facility] Last Admin: 08/21/22 20:04 Dose: 25 mg Morphine Sulfate (Morphine Sulfate 4 Mg/Ml Syringe) 4 mg IV Q4HR PRN PRN Reason: Severe Pain (Scale 7 to 10) Multivitamins (Multivitamins, Thera 1 Each Tab) 1 each PO DAILY [facility] Last Admin: 08/21/22 09:53 Dose: 1 each Naloxone HCl (Naloxone 0.4 Mg/Ml 1 Ml Vial) 0.2 mg IV Q2M PRN PRN Reason: Opioid Reversal Ondansetron HCl (Ondansetron 4 Mg/2 Ml Vial) 4 mg IVP Q8HR PRN PRN Reason: Nausea And Vomiting Promethazine HCl (Promethazine 25 Mg Tab) 12.5 mg PO Q6HR PRN PRN Reason: Nausea And Vomiting Past medical history to include: Hypertension, hypothyroid, anxiety Social history: . Works at the [employer]. Alcohol occasionally. No smoking Physical examination: VITAL SIGNS: 98.1, 65, 18, 121/79, 99% room air GENERAL: Comfortable EYES: Pupils equal. Conjunctiva normal. HEENT: External appearance of nose and ears normal, oral cavity grossly normal. NECK: JVD not raised; masses not palpable. HEART: First and second heart sounds are normal; no edema. LUNGS: Respiratory rate normal; clear to auscultation. ABDOMEN: Soft, nontender, liver spleen not palpable, no masses palpable. PSYCH: Alert and oriented x3; mood and affect normal. MUSCULOSKELETAL:No Clubbing/cyanosis;muscles-grossly intact INVESTIGATIONS, reviewed in the clinical context: White count 5.6 hemoglobin 14.8 platelets 268 sodium 138 potassium 4.4 cre atinine 0.68 Troponin I 3 less than 0.012 EKG tracing personally reviewed by me-heart rate 110. Some ST depression in lead [address] angiogram thoracic/outdoor: Negative for aneurysm/dissection Chest x-ray film personally reviewed by me-unremarkable Assessment and plan -Acute chest pain between the shoulder blades. A copy by EKG changes in inferolateral leads. Negative troponins. Stress test tomorrow. Telemetry. Cardiology following -Essential hypertension Lopressor 25 mg twice a day -Hypothyroid Synthroid 88 g a day -Obesity BMI 32.2 Weight loss measures Stress test tomorrow
[2022-08-21 23:34] LABS: LDL Cholesterol,Calculated 134.6 mg/dL (0.0-131.0)
[2022-08-22] MEDS: LEVOTHYROXINE 88 MCG TAB PO SCH (05:26)
[2022-08-22 07:51] VITALS: BP 142/85; PULSE 98; RESP 15; TEMP 98
[2022-08-22] MEDS: MULTIVITAMINS, THERA 1 EACH TAB PO SCH (09:16)
[2022-08-22] MEDS: ENOXAPARIN 40 MG/0.4 ML SYRINGE SQ SCH (09:16)
[2022-08-22] MEDS: ASPIRIN 81 MG PO SCH (09:17)
--- NOTE | 2022-08-22 09:35 | P.PN ---
Subjective HISTORY OF PRESENT ILLNESS: This is a 62-year-old female with a past medical history significant for hypertension and borderline hyperlipidemia. Patient used to follow in the office with Dr. Aquino but has not been seen in the office since 2012. We have been asked to see the patient in consultation for chest pain. Patient examined at the bedside. Patient states on Saturday she was out shopping when she developed pain in her upper back. She denied having any chest pain at that time. She thought it may be stress related as when she gets stressed she usually tends to have pain in her upper back. She states that the pain went away on its own and she had no other symptoms at night. She states that she woke up in the middle of the night with pain and then was able to fall back asleep. She states she woke up at 8:00 in the morning and continue to have pain in between her shoulder blades and was also nauseated. The patient denies having any chest pain. She states these symptoms are similar to when she had a stress test in 2012. She did undergo heart catheterization in July 2012 which did not reveal any signif icant obstructive disease. The patient states her mom has a history of a valve replacement and her dad was a smoker and she believes he from a heart attack. No family history of premature coronary artery disease. * EKG reveals sinus mechanism with minimal diffuse ST depression * Chest xray negative for acute process * Laboratory data: WBC 5.6. Hemoglobin 14.8. Platelet count 260. D-dimer 0 .26. Sodium 130. Potassium 4.4. BUN 11. Creatinine 0.68. Troponin negative 3. * Current home cardiac medications include metoprolol tartrate 25 mg daily 08/22/2022 Patient examined this morning at the bedside. Patient denies any chest pain or pressure. Denies SOB. Echo completed revealing 50-55%. Vital signs are stable. PHYSICAL EXAM: VITAL SIGNS: Reviewed. GENERAL: Well-developed in no acute distress. HEENT: Head is normocephalic. Pupils are equal, round. Sclerae anicteric. Mucous membranes of the mouth are moist. Neck supple. No JVD or thyromegaly LUNGS: Respirations even and unlabored. Lungs essentially clear to auscultation bilaterally. HEART: Regular rate and rhythm. S1 and S2 heard. ABDOMEN: Soft. Nondistended. Nontender. EXTREMITIES: Normal range of motion. No clubbing or cyanosis. Peripheral pulses intact. No lower extremity edema NEUROLOGIC: Awake and alert. Oriented x 3. ASSESSMENT: Chest pain Hypertension Borderline hyperlipidemia, per patient PLAN: Continue current cardiac medications Patient to undergo stress echocardiogram today If negative, she may be discharged home today from a cardiac standpoint Further recommendations pending patient's course Nurse practitioner note has been reviewed by physician. Signing provider agrees with the documented findings, assessment, and plan of care. Objective - Vital Signs Vital signs: Vital Signs Temp 98.6 F 08/22/22 02:20 Pulse 63 08/22/22 02:20 Resp 14 08/22/22 02:20 BP 109/64 08/22/22 02:20 Pulse Ox 97 08/22/22 02:20 FiO2 Intake & Output 08/21/22 08/22/22 08/22/22 18:59 06:59 18:59 Intake Total 100 Balance 100 Intake: Oral 100 Other: Voiding Method Toilet # Voids 4 2 - Labs CBC & Chem 7: 08/20/22 09:23 08/20/22 09:23 Labs: Abnormal Lab Results - Last 24 Hours (Table) 08/21/22 Range/Units 12:22 Cholesterol 233.00 H (0.00-200.00) mg/dL LDL Cholesterol, Calc 134.6 H (0.0-131.0) mg/dL HDL Cholesterol 72.80 H (40.00-60.00) mg/dL
--- NOTE | 2022-08-22 12:09 | CA ---
Stress Echo Report Maxine Vizcarra Age: 62 Gender: F : 1960 Exam Date: 08/22/2022 09:41 Exam Location: [facility] Ht (in): 69 Wt (lb): 218 Ordering Physician: Sophy York Referring Physician: [id number] Plasterer Apprentice: THIEN Technologist Procedure CPT: Indication: CP ICD-9 Codes: Rhythm: Patient History: Chest and upper back pain. Hypertension Cardiac Medications: Medications in past 24 hours: Contrast: Stress Results Protocol: Adithya Total dose(mL): Exercise Duration (min:sec): 4:[address] Depression (mm): Angina Score: Lloyd Score: METS: 6.2 Resting HR: 109 Resting BP: 168 / 83 Peak HR: 161 Peak BP: 177 / 73 Max Predicted HR: 159 101 % Max Predicted HR Target HR: 135 Double Product: [id number] Stress Summary: BP Response: Reason for Termination: Reached target heart rate or work-load Cardiac Symptoms: No Symptoms ECG Analysis Resting ECG: Stress ECG: Arrhythmia: Echo Analysis Resting Echo: Peak Echo Analysis: MEASUREMENTS (Male/Female) Normal Values CONCLUSIONS Low average exercise capacity of 4 and half minutes on a Adithya protocol No ECG evidence for ischemia Augmentation of overall LV contractility, without development any wall motion abnormalities at peak exercise @Recovery regional global LV systolic function remained normal Impression No ECG or echocardiographic evidence for ischemia Below average exercise capacity Prominent posterior pericardial stripe Dr. Thierno Ackerman MD (Electronically Signed) Final Date: 22 August 2022 12:09
[2022-08-22] MEDS: METOPROLOL TARTRATE 25 MG TAB PO SCH (13:04)
--- NOTE | 2022-08-22 22:25 | P.DS ---
Providers Date of admission: 08/20/22 12:52 Expected date of discharge: 08/22/22 Attending physician: Korey Moses Consults: 08/20/22 12:52 Consult Physician Urgent Consulting Provider: Mohit Jimenez Consult Reason/Comments: Upper back pain, nausea, tachycardia Do you want consulting provider notified?: Yes Primary care physician: Jonathan Card MD Hospital Course: Chief Complaint: Pain between shoulder blade This is a very pleasant 62-year-old patient follows with Dr. Jonathan Card. Chronic stable medical conditions include hypertension, hypothyroid, anxiety. Patient's had previous back surgery and laminectomy. Yesterday she felt a bit bothered between the shoulder blades. And went about her business as usual. It improved. Went to bed. Around midnight the pain came back again. A copy by significant nausea. He didn't feel right. Then she went to sleep from about 3 PM to about 8 AM. No dizziness no lightheadedness. Again this morning she felt more nauseated. No anterior chest pain. No radiation. [place] a bit tired. Decided to come in. Patient had a cardiac catheterization around 2015, by Dr. ISAIAS Aquino. Reportedly negative. No prior cardiac history. August 21: No further pain. Seen by cardiology. For stress test tomorrow. Discussed. August 22: No pain. 2-D echocardiogram and stress echocardiogram negative. Follow-up with cardiology outpatient. Past medical history to include: Hypertension, hypothyroid, anxiety Social history: . Works at the [employer]. Alcohol occasionally. No smoking Physical examination: VITAL SIGNS: 98, 98, 15, 142/85, 99% room air GENERAL: Comfortable EYES: Pupils equal. Conjunctiva normal. HEENT: External appearance of nose and ears normal, oral cavity grossly normal. NECK: JVD not raised; masses not palpable. HEART: First and second heart sounds are normal; no edema. LUNGS: Respiratory rate normal; clear to auscultation. ABDOMEN: Soft, nontender, liver spleen not palpable, no masses palpable. PSYCH: Alert and oriented x3; mood and affect normal. MUSCULOSKELETAL:No Clubbing/cyanosis;muscles-grossly intact INVESTIGATIONS, reviewed in the clinical context: Stress echocardiogram: Negative for ischemia 2-D echocardiogram: EF 50-55% LDL: 134 White count 5.6 hemoglobin 14.8 platelets 268 sodium 138 potassium 4.4 creatinine 0.68 Troponin I 3 less than 0.012 EKG tracing personally reviewed by me-heart rate 110. Some ST depression in lead [address] angiogram thoracic/outdoor: Negative for aneurysm/dissection Chest x-ray film personally reviewed by me-unremarkable Assessment and plan -Acute chest pain between the shoulder blades. A copy by EKG changes in inferolateral leads. Negative troponins. Stress echocardiogram negative. Lopressor 25 twice a day. Aspirin. Follow-up with cardiology outpatient. -Essential hypertension Lopressor 25 mg twice a day -Hyperlipidemia. LDL 134 Start Lipitor 10 mg -Hypothyroid Synthroid 88 g a day -Obesity BMI 32.2 Weight loss measures Disposition: Home Plan - Discharge Summary Discharge Rx Participant: No New Discharge Prescriptions: New Aspirin 81 mg PO DAILY tab Continue Levothyroxine Sodium [Synthroid] 88 mcg PO DAILY Multivit with Calcium,Iron,Min [Women's Multivitamin] 1 tab PO DAILY Biotin 5 mg PO DAILY Changed Metoprolol Tartrate [Lopressor] 25 mg PO BID #60 tab Discharge Medication List Biotin 5 mg PO DAILY 08/20/22 [History] Levothyroxine Sodium [Synthroid] 88 mcg PO DAILY 08/20/22 [History] Multivit with Calcium,Iron,Min [Women's Multivitamin] 1 tab PO DAILY 08/20/22 [History] Aspirin 81 mg PO DAILY tab 08/22/22 [Rx] Metoprolol Tartrate [Lopressor] 25 mg PO BID #60 tab 08/22/22 [Rx] Follow up Appointment(s)/Referral(s): Jonathan Card MD [Primary Care Provider] - 1-2 days Mohit Jimenez MD [STAFF PHYSICIAN] - 4 Weeks (office will call patient with appointment ) Patient Instructions/Handouts: Back Pain (GEN) Discharge Disposition: HOME SELF-CARE
== END 2022-08-22 14:13 | disposition home or self-care (01) ==
LOC: EC 08:47 → 6NMEDSUR 12:52
PROVIDERS: ADMIT Hospitalist; ATTEND Hospitalist
DX: R07.89 Other chest pain (principal); M41.84 Other forms of scoliosis, thoracic region; I10 Essential (primary) hypertension; I70.0 Atherosclerosis of aorta; E03.9 Hypothyroidism, unspecified; E78.5 Hyperlipidemia, unspecified; F41.9 Anxiety disorder, unspecified; I08.1 Rheumatic disorders of both mitral and tricuspid valves; E66.9 Obesity, unspecified; Z79.899 Other long term (current) drug therapy; Z79.890 Hormone replacement therapy; Z68.32 Body mass index [BMI] 32.0-32.9, adult; Z82.49 Family history of ischemic heart disease and other diseases of the circulatory system; Z81.2 Family history of tobacco abuse and dependence
CPT/HCPCS: 96372 ×3; 96374; 96375; 99285; 36415; 93005; 93306; 93351; 85379; 80061; 80053; 82150; 83690; 83735; 84484; 85025; 85610; 85730; 72072; 71046; 71275; 74174; G0378 ×3; J2405; J1650 ×3; J1885; Q9967

== ENCOUNTER → 2024-02-04 | Outpatient (CLI) | payer BC ==
--- NOTE | 2024-02-04 15:11 | MM ---
Reason for Exam: Screening (asymptomatic). Last mammogram was performed 1 year(s) and 10 month(s) ago. Patient History: Menarche at age 13. First Full-Term at age 28. Postmenopausal. Patient used Hormonal Contraceptives for 4 years. Risk Values: Nancy 5 year model risk: 1.7%. NCI Lifetime model risk: 7.7%. Prior Study Comparison: 12/10/2019 Bilateral Screening Mammogram, [facility]. 03/28/2021 Bilateral Screening Mammogram, [facility]. 03/29/2022 Bilateral MG 3D screening mammo w/cad, [facility]. Tissue Density: The breasts are heterogeneously dense, which may obscure small masses. Findings: Analyzed By CAD. There is no suspicious group of microcalcifications or new suspicious mass in either breast. Overall Assessment: Benign, BI-RAD 2 Management: Screening Mammogram of both breasts in 1 year. . Patient should continue monthly self-breast exams. A clinical breast exam by your physician is recommended on an annual basis. This exam should not preclude additional follow-up of suspicious palpable abnormalities. Note on Nancy scores and lifetime risk: 1. A Nancy score greater than 3% is considered moderate risk. If this is the case, consider specialist referral to assess eligibility for a risk reducing agent. 2. If overall lifetime risk for the development of breast cancer is 20% or higher, the patient may qualify for future screening with alternating mammogram and breast MRI. [facility], , 02/04/2024 3:08 PM. Electronically signed and approved by: Simón Ortiz M.D. [facility]
== END | disposition home or self-care (01) ==
LOC: RADMAMWWP 07:35
PROVIDERS: ATTEND Obstetrics & Gynecology
DX: Z12.31 Encounter for screening mammogram for malignant neoplasm of breast (principal); Z78.0 Asymptomatic menopausal state; R92.333 Mammographic heterogeneous density, bilateral breasts
CPT/HCPCS: 77067